=== PATIENT | female | born 1945 | race Caucasian/White ===

== ENCOUNTER → 2018-09-22 | Outpatient (CLI) | payer MEDICARE, BC ==
[~2018-09-22] MED LIST: ALLEGRA ALLERG180 MG; Aspir-Trin325 MG; FISH1000; SIMV40
[2018-09-22 08:49] LABS: BASOPHILS ABSOLUTE AUTO 0.03 K/mm3 (0.00-0.23); BASOPHILS PERCENT AUTO 0 % (0-2); EOSINOPHILS ABSOLUTE AUTO 0.38 K/mm3 (0.00-0.68); EOSINOPHILS PERCENT AUTO 4 % (0-6); Hematocrit 39.1 % (33.0-51.0); Hemoglobin 12.8 g/dL (11.5-16.0); IMMATURE GRAN ABSOLUTE AUTO 0.04 K/mm3 (0.00-0.10); IMMATURE GRAN PERCENT AUTO 0 % (0-1); LYMPHOCYTES PERCENT AUTO 20 % (21-46); MONOCYTES ABSOLUTE AUTO 0.94 K/mm3 (0.16-1.47); MONOCYTES PERCENT AUTO 9 % (4-13); Mean Corpuscular HGB Conc 32.7 g/dL (31.5-36.5); Mean Corpuscular Volume 89 fL (80-100); Mean Platelet Volume 8.8 fL (9.1-12.4); NEUTROPHILS ABSOLUTE AUTO 7.38 K/mm3 (1.96-9.15); NEUTROPHILS PERCENT AUTO 67 % (41-73); Platelet Count 397 K/mm3 (150-400); Red Blood Cell Count 4.42 M/mm3 (3.80-5.20); White Blood Cell Count 10.97 K/mm3 (4.00-11.30)
[2018-09-22 12:57] LABS: Albumin, Blood 3.5 g/dL (3.4-5.0); Alk Phos 56 U/L (40-126); Anion Gap 8 mmol/L (6-16); Aspartate Aminotrans (AST/SGOT 13 U/L (12-37); Bilirubin, Total 0.4 mg/dL (0.1-1.0); Globulin, Blood 3.4 g/dL (2.2-4.0); Glomerular Filtration Rate >60 (60-); HDL Cholesterol 47 mg/dL (>39); LDL/HDL RATIO 1.5; Potassium, Blood 3.8 mmol/L (3.5-5.5); Total Protein, Blood 6.9 g/dL (6.4-8.2); Very Low Density Lipoprot Chol 24 mg/dL (6-32)
[2018-09-22 13:37] LABS: Alanine Aminotransfer (ALT/SGP 22 U/L (12-78); Blood Urea Nitrogen 11 mg/dL (8-24); Bun/Creatinine Ratio 15.7 (12.0-20.0); CO2, Blood 29 mmol/L (21-32); Calcium, Blood 9.5 mg/dL (8.5-10.1); Chloride, Blood 104 mmol/L (98-108); Cholesterol 141 mg/dL (50-200); Glucose, Blood 103 mg/dL (70-99); Low Density Lipoprotein Chol 70 mg/dL (<110); Sodium, Blood 141 mmol/L (136-145); Thyroid Stimulating Hormone 1.168 uIU/mL (0.360-4.800); Triglycerides 122 mg/dL (30-160)
== END | disposition home or self-care (01) ==
LOC: LAB SHORT 08:42 → LAB EV 08:42
PROVIDERS: Physician Assistant
DX: E78.2 Mixed hyperlipidemia (principal); R53.83 Other fatigue
CPT/HCPCS: 36415; 80053; 80061; 84443; 85025

== ENCOUNTER → 2020-01-28 | Outpatient (CLI) | payer MEDICARE, BC | LOC: LAB 18:21 → LAB SHORT 18:21 | DX: L08.9 Local infection of the skin and subcutaneous tissue, unspecified (principal); D48.5 Neoplasm of uncertain behavior of skin; L40.0 Psoriasis vulgaris; L30.4 Erythema intertrigo; L82.1 Other seborrheic keratosis | CPT/HCPCS: 87070; 87077; 87147; 87186; 87205 ==

== ENCOUNTER → 2023-06-11 | Outpatient (CLI) | payer MEDICARE, BC | LOC: LAB SHORT 14:24 → LAB 14:24 | DX: D04.5 Carcinoma in situ of skin of trunk (principal); B88.0 Other acariasis | CPT/HCPCS: 88305 ==